=== PATIENT | female | born 1955 | race Caucasian/White ===

== ENCOUNTER 2018-10-27 03:02 | Emergency (ER) | payer OTHER ==
[2018-10-27] MEDS ORDERED: NS 1,000 ML IV ONE ×2 (03:06→06:05)
--- NOTE | 2018-10-27 03:09 | EDPHY ---
H & P Time Seen by Provider: 10/27/18 03:12 HPI/ROS: HPI CHIEF COMPLAINT: Alcohol intoxication, fall, head laceration, forehead hematoma HISTORY OF PRESENT ILLNESS: 63-year-old female, presents emergency room after she had a fall sustaining a left forehead laceration hematoma. She arrives highly intoxicated with alcohol. Somewhat agitated. She moving everything appropriately. Smells of alcohol, slurring her speech. Not noted to be on any blood thinners. Patient was walking down stairs. Fell down last 6 stairs. Past Medical History: Hypertension Past Surgical History: No recent surgical history Social History: Alcohol intoxication. Family History: Noncontributory ROS REVIEW OF SYSTEMS: Limited due to acute alcohol intoxication Exam Constitutional smells of alcohol, intoxicated triage nursing summary reviewed, vital signs reviewed, awake/alert. Eyes normal conjunctivae and sclera, EOMI, PERRLA. HENT head/neck: Left forehead hematoma with laceration, 3 cm horizontal, placed in cervical collar, normal inspection, atraumatic, moist mucus membranes , no epistaxis, neck supple/ no meningismus, no raccoon eyes. Respiratory clear to auscultation bilaterally, normal breath sounds, no respiratory distress, no wheezing. Cardiovascular rate normal, regular rhythm, no murmur, no edema, distal pulses normal. Gastrointestinal soft, non-tender, no rebound, no guarding, normal bowel sounds, no distension, no pulsatile mass. Genitourinary no CVA tenderness. Musculoskeletal no midline vertebral tenderness, full range of motion, no calf swelling, no tenderness of extremities, no meningismus, good pulses, neurovascularly intact. Skin pink, warm, & dry, no rash, skin atraumatic. Neurologic intoxicated, smells of alcohol, slurring her speech, ataxic Psychiatric normal mood/affect. Heme/Lymph/Immune no lymphadenopathy. Differential Diagnosis: Includes but is not closed head injury, intracranial bleed, cervical spine injury, alcohol intoxication Medical Decision Making: Plan for this patient given her head trauma alcohol intoxication will proceed with CT scan head without contrast, CT cervical spine without contrast for trauma basic blood work, alcohol level. Re-evaluation: CT scan head without contrast CT cervical spine without contrast both are negative for acute traumatic injury called to me by Dr. Herring. Serum alcohol level 333 0510: Patient has a left eyebrow laceration and hematoma. The laceration is 3 cm in horizontal length. Laceration Repair Procedure: Verbal Consent was obtained, Under sterile conditions, The patient had lidocaine with epinephrine used approximately 6ccs to local anesthetize the left eyebrow 3 cm horizontal Laceration. The wound was copiously irrigated with sterile fluid, the wound was explored for foreign bodies there were none visualized, the wound was explored with a sterile glove to the base. There are no deep structures involved, including no arterial injury. THREE 6.O PROLENE interrupted Sutures were placed in this patient's laceration. She had good close approximation of the wound edges. She Tolerated this well. Patient still very intoxicated this time. Patient need to have sutures out of her left eyebrow hematoma laceration in 7 days. Patient removed her C-collar herself. 0636: Patient is now ambulatory. She is clinically sober. Ambulates well. The laceration over the left eyebrow region was repaired by myself. Patient understands to have her sutures removed in 7 days Return precautions discussed with patient return emergency room if not feeling well, vomiting, worsening headache. CT scan head without contrast and CT cervical spine without contrast are negative for acute traumatic injury called to me by Dr. Herring. Source: Patient, EMS - Medical/Surgical History Hx Asthma: No Hx Chronic Respiratory Disease: No Hx Diabetes: No Hx Cardiac Disease: No Hx Renal Disease: No Hx Cirrhosis: No Hx Alcoholism: No Hx HIV/AIDS: No Hx Splenectomy or Spleen Trauma: No Other PMH: HTN, ADHA, Kidney stones - Social History Smoking Status: Current some day smoker Constitutional: Initial Vital Signs Temperature (C) 34.8 C L 10/27/18 03:15 Heart Rate 84 10/27/18 03:15 Respiratory Rate 18 10/27/18 03:15 Blood Pressure 93/70 L 10/27/18 03:15 O2 Sat (%) 93 10/27/18 03:15 O2 Delivery Mode Room Air Allergies/Adverse Reactions: No Known Allergies Allergy (Verified 10/27/18 03:14) Home Medications: Medication Instructions Recorded Aspirin [Aspirin 81mg] 81 mg PO DAILY 08/24/11 Lisinopril [Prinivil] 20 mg PO 08/24/11 ONDANSETRON HCL [zofran] 4 mg PO .Q 4 HRS PRN #10 tab 08/24/11 Tamsulosin HCl [Flomax] 0.4 mg PO .DAILY #5 cap 08/24/11 oxyCODONE/APAP 5/325 [Percocet 1 - 2 tab PO .Q 4 - 6 HRS PRN #20 08/24/11 5/325] tab Ondansetron Odt [Zofran Odt] 4 mg PO Q4PRN PRN #4 tab 03/31/15 oxyCODONE/APAP 5/325 [Percocet 1 tab PO Q4-6PRN PRN #20 tab 03/31/15 5/325] Medical Decision Making - Data Points Laboratory Results: Laboratory Results 10/27/18 04:15 10/27/18 02:55 10/27/18 10/27/18 04:15 02:55 WBC 5.80 10^3/uL 10^3/uL (3.80-9.50) RBC 4.05 10^6/uL L 10^6/uL (4.18-5.33) Hgb 13.1 g/dL g/dL (12.6-16.3) Hct 37.9 % L % (38.0-47.0) MCV 93.6 fL fL (81.5-99.8) MCH 32.3 pg pg (27.9-34.1) MCHC 34.6 g/dL g/dL (32.4-36.7) RDW 12.2 % % (11.5-15.2) Plt Count 178 10^3/uL 10^3/uL (150-400) MPV 9.2 fL fL (8.7-11.7) Neut % (Auto) 37.2 % L % (39.3-74.2) Lymph % (Auto) 46.2 % H % (15.0-45.0) [place] % (Auto) 8.4 % % (4.5-13.0) Eos % (Auto) 6.9 % % (0.6-7.6) Baso % (Auto) 1.0 % % (0.3-1.7) Nucleat RBC Rel Count 0.0 % % (0.0-0.2) Absolute Neuts (auto) 2.15 10^3/uL 10^3/uL (1.70-6.50) Absolute Lymphs (auto) 2.68 10^3/uL 10^3/uL (1.00-3.00) Absolute Monos (auto) 0.49 10^3/uL 10^3/uL (0.30-0.80) Absolute Eos (auto) 0.40 10^3/uL 10^3/uL (0.03-0.40) Absolute Basos (auto) 0.06 10^3/uL 10^3/uL (0.02-0.10) Absolute Nucleated RBC 0.00 10^3/uL 10^3/uL (0-0.01) Immature Gran % 0.3 % % (0.0-1.1) Immature Gran # 0.02 10^3/uL 10^3/uL (0.00-0.10) Sodium 140 mEq/L mEq/L (135-145) Potassium 5.1 mEq/L mEq/L (3.5-5.2) Chloride 107 mEq/L mEq/L (97-110) Carbon Dioxide 20 mEq/l L mEq/l (22-31) Anion Gap 13 mEq/L mEq/L (6-14) BUN 20 mg/dL mg/dL (7-23) Creatinine 0.7 mg/dL mg/dL (0.6-1.0) Estimated GFR > 60 Glucose 112 mg/dL H mg/dL (70-100) Calcium 9.7 mg/dL mg/dL (8.5-10.4) Ethyl Alcohol 333 mg/dL H mg/dL (0-10) Medications Given: Discontinued Medications Sodium Chloride (Ns) 1,000 mls @ 0 mls/hr IV ONCE ONE; Wide Open PRN Reason: Protocol Stop: 10/27/18 03:07 Last Admin: 10/27/18 03:48 Dose: 1,000 mls Sodium Chloride (Ns) 1,000 mls @ 0 mls/hr IV ONCE ONE PRN Reason: Wide Open Stop: 10/27/18 06:06 Last Admin: 10/27/18 06:05 Dose: 1,000 mls Departure - Departure Disposition: Home, Routine, Self-Care Clinical Impression: Alcohol intoxication Qualifiers: Complication of substance-induced condition: uncomplicated Qualified Code(s): F10.920 - Alcohol use, unspecified with intoxication, uncomplicated Condition: Good Instructions: Care For Your Stitches (ED), Laceration (ED), Alcohol Intoxication (ED), Abuse of Alcohol (ED) Additional Instructions: 1. Your Sutures need to be removed in 7 days. Referrals: Patient,NotPresent [Primary Care Provider] - As per Instructions
[2018-10-27 04:26] LABS: PLATELET COUNT 178 10^3/uL (150-400)
[2018-10-27 06:56] VITALS: BP 96/71
--- NOTE | 2018-10-28 11:45 | ASMTCMCOM ---
CM Note CM Note Notes: Follow up call to patient after ED visit 10/27/17 and SBIRT order. Patient as very pleasant, "embarrassed", and acknowledges that she does have resources for ETOH/substance abuse. She states that she will be following up with this and denies need for further resources. Patient currently has [employer] insurance but has not seen her PCP in "a couple of years". Patient states that she is still in "open enrollment" and may be changing insurance insurance provider to [employer]. She assures this CM that she will follow up with this and get re established with a PCP soon. Date Signed: 10/28/2018 11:44 AM Electronically Signed By:Enedina Escalera RN
== END 2018-10-27 07:14 | disposition home or self-care (01) ==
LOC: EDUNIT#
PROC: 08QPXZZ Repair Left Upper Eyelid, External Approach (ICD-10-PCS; principal; 2018-10-27)
DX: S01.112A Laceration without foreign body of left eyelid and periocular area, initial encounter (principal); F10.920 Alcohol use, unspecified with intoxication, uncomplicated; I10 Essential (primary) hypertension; W10.9XXA Fall (on) (from) unspecified stairs and steps, initial encounter; Y92.9 Unspecified place or not applicable; Y93.9 Activity, unspecified; Y99.9 Unspecified external cause status
CPT/HCPCS: G0480